=== PATIENT | female | born 1950 | race Caucasian/White ===

== ENCOUNTER → 2017-02-28 | Outpatient (CLI) | payer MEDICARE ==
--- NOTE | ~2017-02-28 | US6 ---
[facility] A Service of [facility] RADIOLOGY TEXT RESULTS PATIENT: CATE MONTANO LOCATION: [facility] : 46 UNIT #: [id number] AGE: [address]: Bryson Gan MD SEX: F ORDER DR: [id number] [facility] [address] [place], [place] [address] [id number] O MR#: [id number] Acc #: [id number] NAME: CATE MONTANO : 1950 SEX: F STUDY DATE/TIME: 02/28/2017 10:47 UNIT: [facility] ROOM: STUDY DESCRIPTION: US Abdominal Limited Attending Physician: Bryson Gan M.D. Referring Physician: Bryson Gan M.D. Ordering Physician: Bryson Gan M.D. Primary Care Physician: Bryson Gan M.D. MEDICAL IMAGING REPORT This report is preliminary unless electronic signature is present EXAM Right upper quadrant ultrasound 02/28/2017 HISTORY Abnormally elevated liver enzymes at doctor's appointment 2 weeks ago. Epigastric abdominal pain for 6 months, diabetes and hypertension. Cholecystectomy. FINDINGS The liver demonstrates some increase in echotexture with attenuation of the ultrasound beam characteristic of fatty infiltration. The intrahepatic bile ducts are not dilated. The gallbladder is surgically absent as per patient history. The common duct is dilated to 1.1 cm. No obstructing mass or calculus is seen but the distal aspect of the common duct is obscured by bowel gas. Clinical correlation is recommended. If there is clinical concern for choledocholithiasis, consider correlation with MRCP. The pancreas and right kidney are normal. IMPRESSION 1. Fatty infiltration of the liver. 2. Surgical absence of the gallbladder. 3. Dilatation of the common bile duct to 1.1 cm. No obstructing mass or calculus is seen but the distal aspect of the common duct is obscured by bowel gas. If there is clinical concern for choledocholithiasis, consider correlation with MRCP. Dictated by... Geo Duarte M.D. THIS IS AN ELECTRONICALLY VERIFIED REPORT Geo Duarte M.D. at 03/02/2017 8:19 AM KRT/pcl STS. [facility] A Service of [facility] RADIOLOGY TEXT RESULTS PATIENT: CATE MONTANO LOCATION: [facility] #: [id number] : [birth year] UNIT #: [id number] AGE: [address]: Bryson Gan MD SEX: F ORDER DR: TD: 02/28/2017 17:13 JOB #: [id number] MEDICAL IMAGING REPORT Page 1 of 1 COPY
--- NOTE | ~2017-02-28 | PFT ---
[id number] [facility] [address] [place], [place] [address] [id number] O MR#: [id number] NAME: CATE MONTANO ROOM: SEX: F STUDY DATE/TIME: 03/02/2017 : 1950 AGE: 66 STUDY DESCRIPTION: Attending Physician: Bryson Gan M.D. Referring Physician: Bryson Gan M.D. Primary Care Physician: Bryson Gan M.D. PULMONARY DIAGNOSTIC REPORT EXAM Pulmonary function test. FINDINGS Spirometry is suggestive of a mild to moderate restrictive defect. There is no significant response to bronchodilators. Flow volume loop is suggestive of an obstructive defect. Lung volumes reveal a reduced ERV, which can be seen in obesity. Diffusion capacity is moderately reduced. Isolated reduced diffusion capacity can be seen in early interstitial lung disease, pulmonary vascular disease, emphysema, anemia, etc. and clinical correlation is needed. Dictated by... Castillo Angel/tiffany TD: 03/02/2017 11:10 JOB #: [id number] CC: Bryson Gan M.D. PULMONARY DIAGNOSTIC REPORT Page 1 of 1
== END | disposition home or self-care (01) ==
LOC: CGUS 09:48
DX: B35.3 Tinea pedis (principal); E66.9 Obesity, unspecified; F32.9 Major depressive disorder, single episode, unspecified; I10 Essential (primary) hypertension; R60.0 Localized edema; R06.2 Wheezing; N39.46 Mixed incontinence; K76.0 Fatty (change of) liver, not elsewhere classified; K83.8 Other specified diseases of biliary tract; Z90.49 Acquired absence of other specified parts of digestive tract
CPT/HCPCS: 76705

== ENCOUNTER → 2017-03-15 | Outpatient (CLI) | payer MEDICARE | END | disposition home or self-care (01) | LOC: CECH 09:23 | DX: R60.0 Localized edema (principal); I10 Essential (primary) hypertension; F32.9 Major depressive disorder, single episode, unspecified; E66.9 Obesity, unspecified; B35.3 Tinea pedis; N39.46 Mixed incontinence; R06.2 Wheezing | CPT/HCPCS: 93306 ==